=== PATIENT | male | born 1945 | race African-American/Black ===

== ENCOUNTER 2022-04-25 13:25 | Inpatient (IN) | payer OTHER, MEDICARE, MEDICAID ==
[~2022-04-25 13:25] MED LIST: Iopamidol-370 76% 500 ML 1 ML ONE
[2022-04-25 13:53] LABS: #Eosinphils 0.2 thou/uL (0.0-0.7); #Lymphocytes 1.8 thou/uL (1.20-3.40); #Monocytes 0.8 thou/uL (0.11-0.59); #Neutrophils 6.8 thou/uL (1.40-6.50); %Basophils 0.2 % (0.0-1.0); %Eosinophils 1.7 % (0.0-10.0); %Lymphocytes 19.1 % (21.0-51.0); %Monocytes 8.6 % (0.0-10.0); %Neutrophils 70.4 % (42.0-75.0); Hemoglobin 13.7 g/dL (14.0-18.0); Mean Corpuscular Volume 85.5 fl (78.0-98.0); Mean Platelet Volume 8.4 fL (7.4-10.4); Platelet Count 241 10x3/uL (130-400); RBC Distribution Width 12.8 % (11.5-14.5); Red Blood Cell (RBC) Count 4.56 mill/uL (4.70-6.10); White Blood Cell (WBC) Count 9.6 10x3/uL (4.8-10.8)
[2022-04-25] MEDS ORDERED: Fentanyl 100 MCG/2 ML VIAL ONE (14:07)
[2022-04-25 14:10] LABS: ALT (SGPT) 24 U/L (8-55); AST (SGOT) 28 U/L (5-34); Albumin 3.7 g/dL (3.4-4.8); Alkaline Phosphatase 74 U/L (40-110); Anion Gap 13 mmol/L (10-20); BUN (Urea Nitrogen) 29 mg/dL (8.4-25.7); Bilirubin, Total 1.1 mg/dL (0.2-1.2); Calc. Creatinine Clearance 0 mL/min (70-130); Calcium 9.2 mg/dL (7.8-10.44); Carbon Dioxide 21 mmol/L (23-31); Chloride 108 mmol/L (98-107); Estimated GFR 26; Globulin 3.5 g/dL (2.4-3.5); Glucose 147 mg/dL (83-110); Potassium 4.1 mmol/L (3.5-5.1); Protein, Total 7.2 g/dL (5.8-8.1); Sodium 138 mmol/L (136-145)
[2022-04-25] MEDS ORDERED: Morphine 4 MG/ML VIAL ONE (15:40)
[2022-04-25] MEDS ORDERED: Ondansetron PF 4 MG/2 ML Vial IVP PRN (15:48)
[2022-04-25] MEDS ORDERED: HumaLOG 300 UNITS/3 ML VIAL SC PRN (15:48)
[2022-04-25] MEDS ORDERED: Ipratropium/Albuterol 3 ML NEB NEB PRN (15:48)
[2022-04-25] MEDS ORDERED: Dextrose 50% Abboject 50 ML SYRINGE SLOW IVP PRN (15:48)
[2022-04-25] MEDS ORDERED: Morphine 2 MG/ML VIAL SLOW IVP PRN (15:48)
[2022-04-25] MEDS ORDERED: Dextrose 5% in Water 1,000 ML IV PRN (15:48)
[2022-04-25] MEDS ORDERED: traMADol HCl 50 MG TAB PO PRN (15:52)
[2022-04-25] MEDS ORDERED: Cyclobenzaprine 10 MG TAB PO PRN (15:53)
[2022-04-25] MEDS ORDERED: hydrALAZINE 20 MG/ML VIAL SLOW IVP PRN (15:53)
[2022-04-25] MEDS ORDERED: Aspirin Chewable 81 MG TAB ONE (16:08)
[2022-04-25] MEDS ORDERED: Sodium Phosphate 30 MMOL in Sodium Chloride 0.9% 250 ML 250 ML IVPB SCH (17:00)
[2022-04-25 18:38] LABS: SARS-CoV-2 NAA Rapid Test Not Detected (NotDetected)
[2022-04-25 19:56] VITALS: BMI 40.7
[2022-04-25] MEDS: traMADol HCl 50 MG TAB PO SCH (20:04)
[2022-04-25] MEDS: Sodium Chloride 0.9% 1,000 ML IV SCH (20:28)
[2022-04-25] MEDS: Gabapentin 100 MG CAP PO SCH (20:46)
[2022-04-25] MEDS: Senokot S 8.6-50 MG TAB PO SCH (20:47)
[2022-04-25] MEDS: Famotidine/PF 20 mg/2ml Vial SLOW IVP SCH (20:47)
[2022-04-25] MEDS: Morphine 4 MG/ML VIAL SLOW IVP PRN ×2 (20:48→23:53)
[2022-04-25 20:54] LABS: Bacteria/HPF None Seen HPF (None Seen); Bilirubin Negative (Negative); Blood, Urine Negative (Negative); CAUTI Indications for Culture Alt mental st,lethar; Clarity Clear (Clear); Glucose, Urine (Dipstick) Normal (Negative); Ketone, Urine Negative (Negative); Leukocyte Negative Leu/uL (Negative); Nitrite Negative (Negative); Protein, Urine (Dipstick) Negative (Neg-Trace); RBC/HPF 0-3 HPF (0-3); Specific Gravity, Urine 1.039 (1.002-1.036); Squamous Epithelial None Seen HPF (0-3); Urobilinogen Normal mg/dL (Less than 2); WBC/HPF 0-3 HPF (0-3); pH, Urine 5.5 (5.0-9.0)
[2022-04-25 20:56] LABS: Urine Culture Reflex No No
[2022-04-25] MEDS ORDERED: TETANUS, DIPHTHERIA TOX,ADULT (TDVAX) 0.5 ML VIAL IM ONE (21:00)
[2022-04-25 21:02] LABS: Amphetamine Not Detected (NotDetected); Barbiturates Screen Not Detected (NotDetected); Benzodiazepine Screen Not Detected (NotDetected); Cocaine Metabolite Screen Not Detected (NotDetected); Methadone Not Detected (NotDetected); Methamphetamine Not Detected (NotDetected); Opiate Screen Detected (NotDetected); Oxycodone Screen Not Detected (NotDetected); Phencyclidine (PCP) Not Detected (NotDetected); THC/Cannabinoid Screen Not Detected (NotDetected); Tricyclic Screen Not Detected (NotDetected)
[2022-04-26] MEDS: traMADol HCl 50 MG TAB PO SCH ×5 (01:41→23:29)
[2022-04-26] MEDS: Sodium Chloride 0.9% 1,000 ML IV SCH (01:42)
[2022-04-26] MEDS: Acetaminophen 500 MG TAB PO SCH ×5 (01:42→23:29)
[2022-04-26 05:17] LABS: Hemoglobin A1c 4.9 % (4.0-6.0)
[2022-04-26 05:24] LABS: INR-International Normal Ratio 1.2; Prothrombin Time 15.2 sec (12.0-14.7)
[2022-04-26 05:31] LABS: Anion Gap 12 mmol/L (10-20); BUN (Urea Nitrogen) 22 mg/dL (8.4-25.7); Calc. Creatinine Clearance 50 mL/min (70-130); Calcium 8.5 mg/dL (7.8-10.44); Carbon Dioxide 22 mmol/L (23-31); Chloride 107 mmol/L (98-107); Estimated GFR 34; Glucose 98 mg/dL (83-110); Magnesium 1.7 mg/dL (1.6-2.6); Potassium 3.8 mmol/L (3.5-5.1); Sodium 137 mmol/L (136-145)
[2022-04-26 05:39] LABS: Phosphorus 4.6 mg/dL (2.3-4.7)
[2022-04-26 06:08] LABS: Band 1 % (5-11); Eosinophils 1 % (0-10); Lymphocytes 32 % (21-51); MDiff Complete? YES; Mean Corpuscular Hemoglobin 30.2 pg (27.0-31.0); Mean Corpuscular Volume 86.3 fl (78.0-98.0); Mean Platelet Volume 8.5 fL (7.4-10.4); Monocytes 8 % (0-10); Neutrophil 58 % (42-75); Platelet Count 254 10x3/uL (130-400); Platelet Morphology Comment Appears Adequate; RBC Distribution Width 12.8 % (11.5-14.5); RBC Morphology Normal; Red Blood Cell (RBC) Count 4.32 mill/uL (4.70-6.10); White Blood Cell (WBC) Count 8.8 10x3/uL (4.8-10.8)
[2022-04-26] MEDS: Polyethylene Glycol 3350 17 GM Packet PO SCH (10:40)
[2022-04-26] MEDS: Senokot S 8.6-50 MG TAB PO SCH ×2 (10:40→20:42)
[2022-04-26] MEDS: Aspirin 81 mg Enteric Coated Tablet PO SCH (10:40)
[2022-04-26] MEDS: Gabapentin 100 MG CAP PO SCH ×3 (10:41→20:42)
[2022-04-26] MEDS ORDERED: Magnesium 2 GM/50 ML(in water) 2 GM in Premix Bag 1 BAG IVPB SCH (11:00)
[2022-04-26] MEDS: Famotidine/PF 20 mg/2ml Vial SLOW IVP SCH (20:42)
[2022-04-26] MEDS ORDERED: Nitroglycerin 0.4 MG TAB (25 Tab Bottle) ONE (20:43)
[2022-04-26] MEDS: Amlodipine 10 MG TAB PO SCH (23:29)
[2022-04-27] MEDS: traMADol HCl 50 MG TAB PO SCH ×2 (05:06→11:10)
[2022-04-27] MEDS: Acetaminophen 500 MG TAB PO SCH ×2 (05:06→11:09)
[2022-04-27 05:26] LABS: Anion Gap 10 mmol/L (10-20); BUN (Urea Nitrogen) 19 mg/dL (8.4-25.7); Calc. Creatinine Clearance 54 mL/min (70-130); Calcium 8.5 mg/dL (7.8-10.44); Carbon Dioxide 25 mmol/L (23-31); Chloride 106 mmol/L (98-107); Estimated GFR 37; Glucose 104 mg/dL (83-110); Magnesium 2.1 mg/dL (1.6-2.6); Phosphorus 3.8 mg/dL (2.3-4.7); Sodium 137 mmol/L (136-145)
[2022-04-27 05:38] LABS: Band 2 % (5-11); Eosinophils 1 % (0-10); Hemoglobin 12.8 g/dL (14.0-18.0); Hypochromia SLIGHT = 6-15 cells (100X) (0-5/hpf); Lymphocytes 27 % (21-51); MDiff Complete? YES; Mean Corpuscular HGB CONC 35.1 g/dL (32.0-36.0); Mean Corpuscular Hemoglobin 30.1 pg (27.0-31.0); Mean Corpuscular Volume 85.8 fl (78.0-98.0); Mean Platelet Volume 8.6 fL (7.4-10.4); Monocytes 7 % (0-10); Neutrophil 58 % (42-75); Platelet Count 223 10x3/uL (130-400); Platelet Morphology Comment Appears Adequate; RBC Distribution Width 12.7 % (11.5-14.5); Reactive Lymphocytes 5 % (0-10); Red Blood Cell (RBC) Count 4.26 mill/uL (4.70-6.10); White Blood Cell (WBC) Count 6.3 10x3/uL (4.8-10.8)
[2022-04-27] MEDS: Amlodipine 10 MG TAB PO SCH (08:30)
[2022-04-27] MEDS: Gabapentin 100 MG CAP PO SCH (08:31)
[2022-04-27] MEDS: Aspirin 81 mg Enteric Coated Tablet PO SCH (08:31)
[2022-04-27] MEDS: Senokot S 8.6-50 MG TAB PO SCH (08:31)
[2022-04-27] MEDS: Polyethylene Glycol 3350 17 GM Packet PO SCH (08:32)
[2022-04-27 11:25] VITALS: TEMP 98.1
[2022-04-27 12:07] VITALS: BP 169/80
[2022-04-28] MEDS ORDERED: Losartan/Hydrochlorothiazide 100 mg/25 mg Tablet PO SCH (09:00)
== END 2022-04-27 12:30 | disposition home or self-care (01) | DRG 552 ==
LOC: ERS 13:25 → 2NO 15:48 → OBSVTOIN 04-27 12:26
PROVIDERS: ADMIT Surgery; ATTEND Surgery
DX: S32.029A Unspecified fracture of second lumbar vertebra, initial encounter for closed fracture (principal); N17.9 Acute kidney failure, unspecified; S32.039A Unspecified fracture of third lumbar vertebra, initial encounter for closed fracture; S32.049A Unspecified fracture of fourth lumbar vertebra, initial encounter for closed fracture; I44.7 Left bundle-branch block, unspecified; F17.220 Nicotine dependence, chewing tobacco, uncomplicated; R55 Syncope and collapse; R91.1 Solitary pulmonary nodule; I12.9 Hypertensive chronic kidney disease with stage 1 through stage 4 chronic kidney disease, or unspecified chronic kidney disease; N18.9 Chronic kidney disease, unspecified; V46.5XXA Car driver injured in collision with other nonmotor vehicle in traffic accident, initial encounter
CPT/HCPCS: 36415; 36416; 70450; 71045; 71260; 72125; 74177; 80048; 80053; 80306; 81001; 83036; 83735; 83880; 84100; 84146; 84443; 84484; 85025; 85610; 85730; 90714; 93005; 93010; 93306; 93880; 96374; 96375; 96376; G0378; G0390; J2270; J3010; J3475; J7050; Q9967; S0028; U0002